=== PATIENT | female | born 1950 | race Caucasian/White ===

== ENCOUNTER 2017-09-20 00:47 | Inpatient (IN) | payer OTHER, MEDICAID ==
[~2017-09-20] VITALS: Ht 154.9 cm; Wt 121.6 kg
[2017-09-20] MEDS ORDERED: ALBUTEROL/IPRATROPIUM 2.5MG/0.5MG, 3 ML ONE (01:14)
[2017-09-20] MEDS ORDERED: ALBUTEROL/IPRATROPIUM 2.5MG/0.5MG, 3 ML NPPB ONE (01:30)
[2017-09-20] MEDS ORDERED: ONDANSETRON 2MG/ML, 2ML IVPush ONE (01:30)
[2017-09-20] MEDS ORDERED: SODIUM CHLORIDE FLUSH 10ML SYR IVF ONE (01:30)
[2017-09-20] MEDS ORDERED: MORPHINE SULFATE 4 MG/ML, 1ML IVPush PRN (01:30)
[2017-09-20 01:50] LABS: BASOPHILS # (AUTO) 0.03 x10^3/uL (0-0.1); BASOPHILS % (AUTO) 1 % (0-1); EOSINOPHILS % (AUTO) 0 % (1-7); LYMPHOCYTES # (AUTO) 2.75 x10^3/uL (1-3.4); LYMPHOCYTES % (AUTO) 40 % (22-44); MD NO; MEAN CORPUSCULAR HEMOGLOBIN 29.1 pg (27.0-34.8); MEAN CORPUSCULAR HGB CONC 33.3 g/dL (32.4-35.8); MEAN CORPUSCULAR VOLUME 87.2 fL (80-100); MEAN PLATELET VOLUME 7.6 fL (7.4-10.4); MONOCYTES # (AUTO) 0.37 x10^3/uL (0.2-0.8); MONOCYTES % (AUTO) 5 % (2-9); NEUTROPHILS # (AUTO) 3.73 x10^3/uL (1.8-6.8); NEUTROPHILS % (AUTO) 54 % (42-75); PLATELET COUNT 214 x10^3/uL (130-400); RED BLOOD COUNT 4.71 x10^6/uL (3.82-5.3); RED CELL DISTRIBUTION WIDTH 14.2 % (9.6-15.2)
[2017-09-20 02:02] LABS: ALANINE AMINOTRANSFERASE 28 U/L (12-78); ALBUMIN 3.1 g/dL (3.4-5.0); ANION GAP 5 mmol/L (5-15); CALCIUM 8.7 mg/dL (8.5-10.1); CHLORIDE 104 mmol/L (98-107); CREATININE 1.03 mg/dL (0.55-1.02)
[2017-09-20 02:07] LABS: ALKALINE PHOSPHATASE 94 U/L (45-117); BILIRUBIN,TOTAL 0.3 mg/dL (0.2-1.0); TOTAL PROTEIN 7.1 g/dL (6.4-8.2); TROPONIN I < 0.015 ng/mL (0.000-0.045)
[2017-09-20] MEDS ORDERED: ONDANSETRON 2MG/ML, 2ML ONE (02:13)
[2017-09-20] MEDS ORDERED: MORPHINE SULFATE 4 MG/ML, 1ML ONE (02:14)
[2017-09-20] MEDS ORDERED: POTASSIUM CHLORIDE 20 MEQ TAB.ER.PRT PO ONE (02:30)
[2017-09-20] MEDS ORDERED: POTASSIUM CHLORIDE 20 MEQ TAB.ER.PRT ONE (02:31)
[2017-09-20 02:37] LABS: CULTURE INDICATED? YES; MICROSCOPIC INDICATED
[2017-09-20] MEDS ORDERED: OMNIPAQUE 350 MG/ML, 100ML BOTTLE ONE (02:51)
[2017-09-20] MEDS ORDERED: CEFTRIAXONE PMX 1GM/50ML 50 ML ONE (02:58)
[2017-09-20] MEDS ORDERED: CEFTRIAXONE 1,000 MG in SODIUM CHLORIDE 0.9% 50 ML IV ONE (03:00)
[2017-09-20] MEDS ORDERED: SODIUM CHLORIDE 0.9% 1,000 ML IV SCH (03:44)
[2017-09-20] MEDS ORDERED: NITROGLYCERIN 0.4 MG BOTTLE (25 TABS) SL PRN (04:00)
[2017-09-20] MEDS ORDERED: POLYETHYLENE GLYCOL 17 GM PACKET PO PRN (04:00)
[2017-09-20] MEDS: methylPREDNISolone SOD SUCC 40 MG/ML IV SCH ×2 (04:42→12:44)
[2017-09-20] MEDS: ACETAMINOPHEN 325 MG TABLET PO PRN ×3 (04:42→20:05)
[2017-09-20] MEDS: GUAIFENESIN/DM 200-20MG, 10ML UDC PO PRN (04:42)
[2017-09-20] MEDS: ENOXAPARIN 40 MG/0.4 ML SQ SCH (05:04)
[2017-09-20 05:14] VITALS: BP 160/92
[2017-09-20] MEDS ORDERED: ALBUTEROL/IPRATROPIUM 2.5MG/0.5MG, 3 ML NPPB PRN ×2 (05:30→11:00)
[2017-09-20 08:06] VITALS: BP 146/84
[2017-09-20] MEDS ORDERED: OXYB5TAB7 PO (09:34)
[2017-09-20] MEDS ORDERED: ASPI-621 PO (09:34)
[2017-09-20] MEDS ORDERED: HYDR25TA11 PO (09:34)
[2017-09-20] MEDS ORDERED: CLON1TAB4 PO (09:34)
[2017-09-20] MEDS ORDERED: MELO7.5T31 PO (09:34)
[2017-09-20] MEDS ORDERED: POTA20TA89 PO (09:34)
[2017-09-20] MEDS ORDERED: LEVO150T5 PO (09:34)
[2017-09-20] MEDS ORDERED: TRAZ150T62 PO (09:34)
[2017-09-20] MEDS ORDERED: LOSA100T6 PO (09:34)
[2017-09-20 12:08] VITALS: BP 162/87
[2017-09-20] MEDS: OXYBUTYNIN CHLORIDE 5 MG TABLET PO SCH ×2 (16:23→20:05)
[2017-09-20] MEDS: CEFTRIAXONE 2 GM in SODIUM CHLORIDE 0.9% 50 ML IV SCH (16:24)
[2017-09-20 19:05] VITALS: BP 152/94
[2017-09-20] MEDS: TRAZODONE 150MG TABLET PO PRN (20:06)
[2017-09-20] MEDS: BUTALB/APAP/CAFFEINE 50MG/325MG/40MG PO PRN (22:23)
[2017-09-21] MEDS: GUAIFENESIN/DM 200-20MG, 10ML UDC PO PRN (00:07)
[2017-09-21] MEDS: ACETAMINOPHEN 325 MG TABLET PO PRN (00:08)
[2017-09-21 00:33] VITALS: BP 148/88
[2017-09-21 06:04] LABS: CHLORIDE 106 mmol/L (98-107)
[2017-09-21 06:08] LABS: BASOPHILS % (AUTO) 0 % (0-1); EOSINOPHILS % (AUTO) 0 % (1-7); LYMPHOCYTES # (AUTO) 2.26 x10^3/uL (1-3.4); LYMPHOCYTES % (AUTO) 21 % (22-44); MD NO; MEAN CORPUSCULAR HEMOGLOBIN 29.1 pg (27.0-34.8); MEAN CORPUSCULAR HGB CONC 33.4 g/dL (32.4-35.8); MEAN CORPUSCULAR VOLUME 87.1 fL (80-100); MEAN PLATELET VOLUME 8.3 fL (7.4-10.4); MONOCYTES # (AUTO) 0.63 x10^3/uL (0.2-0.8); MONOCYTES % (AUTO) 6 % (2-9); NEUTROPHILS # (AUTO) 7.83 x10^3/uL (1.8-6.8); NEUTROPHILS % (AUTO) 73 % (42-75); PLATELET COUNT 259 x10^3/uL (130-400); RED BLOOD COUNT 4.65 x10^6/uL (3.82-5.3); RED CELL DISTRIBUTION WIDTH 14.4 % (9.6-15.2)
[2017-09-21 06:11] LABS: ALANINE AMINOTRANSFERASE 23 U/L (12-78); ALBUMIN 3.1 g/dL (3.4-5.0); ALKALINE PHOSPHATASE 77 U/L (45-117); ANION GAP 6 mmol/L (5-15); BILIRUBIN,TOTAL 0.3 mg/dL (0.2-1.0); CALCIUM 8.6 mg/dL (8.5-10.1); CREATININE 0.91 mg/dL (0.55-1.02); TOTAL PROTEIN 6.8 g/dL (6.4-8.2)
[2017-09-21] MEDS: LEVOTHYROXINE 150 MCG TABLET PO SCH (06:19)
[2017-09-21] MEDS: ENOXAPARIN 40 MG/0.4 ML SQ SCH (06:19)
[2017-09-21 07:29] VITALS: BP 120/79
[2017-09-21] MEDS: LOSARTAN 50MG TABLET PO SCH (09:23)
[2017-09-21] MEDS: OXYBUTYNIN CHLORIDE 5 MG TABLET PO SCH ×3 (09:23→20:07)
[2017-09-21] MEDS: ASPIRIN 81 MG TABLET EC PO SCH (09:24)
[2017-09-21] MEDS: MELOXICAM 15 MG TABLET PO SCH (09:26)
[2017-09-21 14:00] VITALS: BP 151/92
[2017-09-21] MEDS: CEFTRIAXONE 2 GM in SODIUM CHLORIDE 0.9% 50 ML IV SCH (16:30)
[2017-09-21 16:49] VITALS: BP 151/92
[2017-09-21] MEDS ORDERED: PLEASE ENTER ALLERGIES MC SCH ×2 (18:00→20:00)
[2017-09-21 18:40] VITALS: BP 165/90
[2017-09-21] MEDS: BUTALB/APAP/CAFFEINE 50MG/325MG/40MG PO PRN (20:07)
[2017-09-21] MEDS: TRAZODONE 150MG TABLET PO PRN (22:25)
[2017-09-22 02:28] VITALS: BP 152/78
[2017-09-22] MEDS: ENOXAPARIN 40 MG/0.4 ML SQ SCH (06:07)
[2017-09-22] MEDS: LEVOTHYROXINE 150 MCG TABLET PO SCH (06:07)
[2017-09-22 08:18] VITALS: BP 145/98
[2017-09-22] MEDS: LOSARTAN 50MG TABLET PO SCH (08:20)
[2017-09-22] MEDS: MELOXICAM 15 MG TABLET PO SCH (08:21)
[2017-09-22] MEDS: ASPIRIN 81 MG TABLET EC PO SCH (08:21)
[2017-09-22] MEDS: OXYBUTYNIN CHLORIDE 5 MG TABLET PO SCH ×3 (08:21→20:20)
[2017-09-22 13:50] VITALS: BP 160/85
[2017-09-22] MEDS: CEFTRIAXONE 2 GM in SODIUM CHLORIDE 0.9% 50 ML IV SCH (15:50)
[2017-09-22 18:30] VITALS: BP 142/92
[2017-09-22] MEDS: BUTALB/APAP/CAFFEINE 50MG/325MG/40MG PO PRN (20:20)
[2017-09-22] MEDS: TRAZODONE 150MG TABLET PO PRN (22:08)
[2017-09-23 00:13] VITALS: BP 153/94
[2017-09-23] MEDS: LEVOTHYROXINE 150 MCG TABLET PO SCH (06:08)
[2017-09-23] MEDS: ENOXAPARIN 40 MG/0.4 ML SQ SCH (06:08)
[2017-09-23 06:30] VITALS: BP 142/101
[2017-09-23] MEDS: MELOXICAM 15 MG TABLET PO SCH (08:43)
[2017-09-23] MEDS: ASPIRIN 81 MG TABLET EC PO SCH (08:43)
[2017-09-23] MEDS: OXYBUTYNIN CHLORIDE 5 MG TABLET PO SCH (08:43)
[2017-09-23] MEDS: LOSARTAN 50MG TABLET PO SCH (08:43)
[2017-09-23] MEDS ORDERED: AMOXICILLIN/CLAV 875-125MG TABLET PO SCH (10:00)
[2017-09-23] MEDS ORDERED: CEFD300C37 PO (10:06)
[2017-09-23] MEDS ORDERED: AMOX-291 PO (10:06)
[2017-09-23 11:03] LABS: BASOPHILS # (AUTO) 0.03 x10^3/uL (0-0.1); BASOPHILS % (AUTO) 1 % (0-1); EOSINOPHILS % (AUTO) 0 % (1-7); LYMPHOCYTES # (AUTO) 1.77 x10^3/uL (1-3.4); LYMPHOCYTES % (AUTO) 28 % (22-44); MD NO; MEAN CORPUSCULAR HEMOGLOBIN 28.5 pg (27.0-34.8); MEAN CORPUSCULAR HGB CONC 33.1 g/dL (32.4-35.8); MEAN PLATELET VOLUME 8.4 fL (7.4-10.4); MONOCYTES # (AUTO) 0.37 x10^3/uL (0.2-0.8); MONOCYTES % (AUTO) 6 % (2-9); NEUTROPHILS # (AUTO) 4.27 x10^3/uL (1.8-6.8); NEUTROPHILS % (AUTO) 66 % (42-75); PLATELET COUNT 205 x10^3/uL (130-400); RED BLOOD COUNT 4.67 x10^6/uL (3.82-5.3); RED CELL DISTRIBUTION WIDTH 14.6 % (9.6-15.2)
[2017-09-23 11:04] LABS: CHLORIDE 107 mmol/L (98-107)
[2017-09-23 11:05] LABS: ANION GAP 8 mmol/L (5-15); CALCIUM 7.9 mg/dL (8.5-10.1)
[2017-09-23 11:07] LABS: CREATININE 0.69 mg/dL (0.55-1.02)
== END 2017-09-23 12:20 | disposition home or self-care (01) | DRG 202 ==
LOC: ED 01:13 → EDIP 03:06 → 4NOR 04:02 → 4WST 07:55
PROVIDERS: ADMIT Family Medicine; ATTEND Hospitalist
PROC: 0T9B70Z Drainage of Bladder with Drainage Device, Via Natural or Artificial Opening (ICD-10-PCS; principal; 2017-09-20)
DX: J20.9 Acute bronchitis, unspecified (principal); N10 Acute pyelonephritis; J44.1 Chronic obstructive pulmonary disease with (acute) exacerbation; J44.0 Chronic obstructive pulmonary disease with (acute) lower respiratory infection; Z68.43 Body mass index [BMI] 50.0-59.9, adult; K57.30 Diverticulosis of large intestine without perforation or abscess without bleeding; I11.0 Hypertensive heart disease with heart failure; I50.9 Heart failure, unspecified; E87.6 Hypokalemia; E03.9 Hypothyroidism, unspecified; Z96.659 Presence of unspecified artificial knee joint; Z99.81 Dependence on supplemental oxygen; E66.01 Morbid (severe) obesity due to excess calories; G89.29 Other chronic pain; M54.9 Dorsalgia, unspecified; Z90.710 Acquired absence of both cervix and uterus; Z87.891 Personal history of nicotine dependence; Z91.19 Patient's noncompliance with other medical treatment and regimen; Z88.8 Allergy status to other drugs, medicaments and biological substances
CPT/HCPCS: 36415; 71045; 74177; 80048; 80053; 81001; 82040; 83690; 83735; 83880; 84100; 84484; 85025; 87077; 87086; 87186; 93005; 94640; 96365; 96375; 99285; J0696; J1650; J2405; J7620; Q9967; J2920; J7030; J7512; Q0177